=== PATIENT | male | born 2000 | race American Indian/Alaskan Native ===

== ENCOUNTER 2021-08-23 12:10 | Emergency (ER) | payer SELFPAY ==
[2021-08-23 15:45] LABS: Hematocrit 43.9 % (35.5-45.6); Hemoglobin 15.2 gm/dl (11.8-15.2); Mean Corpuscular HGB Conc 35 % (32-34); Mean Corpuscular Volume 84 fl (84-94); Platelet Count 202 K/mm3 (140-440); Red Blood Count 5.26 M/mm3 (3.65-5.03); Red Cell Distribution Width 13.8 % (13.2-15.2)
--- NOTE | 2021-08-23 15:58 | XRay Report ---
CHEST 2 VIEWS INDICATION / CLINICAL INFORMATION: Shortness of breath. COMPARISON: None available. FINDINGS: SUPPORT DEVICES: None. HEART / MEDIASTINUM: The heart size and pulmonary vasculature are normal. LUNGS / PLEURA: No significant pulmonary or pleural abnormality. No pneumothorax. ADDITIONAL FINDINGS: No significant additional findings. IMPRESSION: No acute findings. Signer Name: Michele Gallegos MD Signed: 08/23/2021 3:53 PM Workstation Name: [id number]
[2021-08-23 16:06] LABS: Alanine Aminotransferase 16 units/L (7-56); Albumin 4.8 g/dL (3.9-5); BUN/Creatinine Ratio 16; Blood Urea Nitrogen 16 mg/dL (9-20); Calcium 9.9 mg/dL (8.4-10.2); Hemolysis Index 5
--- NOTE | 2021-08-23 16:24 | Emergency Department Report ---
- General Chief complaint: Psych Stated complaint: POISON Time Seen by Provider: 08/23/21 15:11 Source: patient Mode of arrival: Ambulatory Limitations: No Limitations - History of Present Illness Initial comments: 21-year-old black male with no past medical history presents to the emergency department for evaluation of fatigue and shortness of breath. He states that about a year ago he was living with a friend, got into an argument with a friend, and was put out. He states that he thinks that he was radiation poisoning while staying there and since then he has intermittent fatigue and shortness of breath and is here today because he just wants to make sure that everything is okay. He denies any pain or nausea vomiting. He denies SI, HI, and hallucinations. MD Complaint: generalized weakness, lack of energy -: Gradual, days(s) (5 or 6) Associated Symptoms: shortness of breath. denies: chest pain, confusion, dark stools, diaphoresis, dysuria, easy bruising, fever/chills, headaches, loss of appetite, nausea/vomiting, myalgias, rash, syncope - Related Data Allergies Allergy/AdvReac Type Severity Reaction Status Date / Time No Known Allergies Allergy Unverified 08/23/21 12:44 ED Review of Systems ROS: Stated complaint: POISON Other details as noted in HPI Comment: All other systems reviewed and negative Constitutional: weakness. denies: chills, diaphoresis, fever, malaise Eyes: denies: eye pain, eye discharge, vision change ENT: denies: ear pain, throat pain Respiratory: shortness of breath. denies: cough, orthopnea, SOB with exertion, SOB at rest, stridor, wheezing Cardiovascular: denies: chest pain, palpitations, dyspnea on exertion, orthopnea, edema, syncope, paroxysmal nocturnal dyspnea Endocrine: no symptoms reported Gastrointestinal: denies: abdominal pain, nausea, vomiting, diarrhea, hematemesis, melena, hematochezia Genitourinary: denies: urgency, dysuria, frequency, hematuria, discharge, testicular pain Musculoskeletal: denies: back pain Skin: denies: rash, lesions Neurological: weakness. denies: headache, numbness, paresthesias, confusion, abnormal gait, vertigo Psychiatric: denies: anxiety, depression, auditory hallucinations, visual hallu cinations, homicidal thoughts, suicidal thoughts Hematological/Lymphatic: denies: easy bleeding, easy bruising ED Past Medical Hx - Past Medical History Previous Medical History?: No - Surgical History Past Surgical History?: No ED Physical Exam - General Limitations: No Limitations General appearance: alert, in no apparent distress - Head Head exam: Present: atraumatic, normocephalic - Eye Eye exam: Present: normal appearance. Absent: conjunctival injection - Neck Neck exam: Present: normal inspection. Absent: tenderness, meningismus, lymphadenopathy - Respiratory Respiratory exam: Present: normal lung sounds bilaterally. Absent: respiratory distress, wheezes, rales, rhonchi, stridor, chest wall tenderness, accessory muscle use - Cardiovascular Cardiovascular Exam: Present: bradycardia, normal heart sounds - GI/Abdominal GI/Abdominal exam: Present: normal bowel sounds. Absent: distended, tenderness, guarding, rebound, rigid - Extremities Exam Extremities exam: Present: normal inspection - Back Exam Back exam: Present: normal inspection. Absent: tenderness, CVA tenderness (R), CVA tenderness (L), paraspinal tenderness, vertebral tenderness - Neurological Exam Neurological exam: Present: alert, oriented X3 - Psychiatric Psychiatric exam: Present: normal affect, normal mood. Absent: agitated, anxious, flat affect, homicidal ideation, suicidal ideation - Skin Skin exam: Present: warm, dry, intact, normal color ED Course Vital Signs 08/23/21 08/23/21 12:39 17:36 Temperature 98.7 F Pulse Rate 55 L 80 Respiratory 16 16 Rate Blood Pressure 132/89 Blood Pressure 116/57 [Right] O2 Sat by Pulse 100 98 Oximetry ED Medical Decision Making - Lab Data Result diagrams: 08/23/21 15:17 08/23/21 15:17 - Radiology Data Radiology results: report reviewed, image reviewed Chest x-ray FINDINGS: SUPPORT DEVICES: None. HEART / MEDIASTINUM: The heart size and pulmonary vasculature are normal. LUNGS / PLEURA: No significant pulmonary or pleural abnormality. No pneumothorax. ADDITIONAL FINDINGS: No significant additional findings. IMPRESSION: No acute findings. - Medical Decision Making 21-year-old black male with no past medical history presents to the emergency department for evaluation of fatigue and shortness of breath. He states that about a year ago he was living with a friend, got into an argument with a friend, and was put out. He states that he thinks that he was radiation poisoni ng while staying there and since then he has intermittent fatigue and shortness of breath and is here today because he just wants to make sure that everything is okay. He denies any pain or nausea vomiting. He denies SI, HI, and hallucinations. No gross abnormalities noted to CBC, CMP, and chest x-ray. No gross abnormalities noted on assessment. Patient was advised to follow-up with primary care provider for further evaluation. He was advised to return to the emergency department for any concerning symptoms. Critical care attestation.: If time is entered above; I have spent that time in minutes in the direct care of this critically ill patient, excluding procedure time. ED Disposition Clinical Impression: Weakness Fatigue Qualifiers: Fatigue type: unspecified Qualified Code(s): R53.83 - Other fatigue Disposition: 01 HOME / SELF CARE / HOMELESS Is pt being admited?: No Does the pt Need Aspirin: No Condition: Stable Instructions: Fatigue, Weakness, [id number] Additional Instructions: Follow-up with primary care provider for further evaluation. Referrals: PRIMARY MD ANGY [Primary Care Provider] - 3-5 Days Time of Disposition: 16:24
[2021-08-23 17:38] VITALS: BP 116/57
== END 2021-08-23 17:37 | disposition home or self-care (01) ==
LOC: ED 12:10
DX: R53.1 Weakness (principal); R53.83 Other fatigue; R06.02 Shortness of breath; Z79.899 Other long term (current) drug therapy
CPT/HCPCS: 36415; 71046; 80053; 85027; 99283